=== PATIENT | female | born 1975 | race Caucasian/White ===

== ENCOUNTER → 2018-07-09 | Outpatient (CLI) | payer OTHER ==
--- NOTE | 2018-07-09 13:10 | Diagnostic Imaging Report ---
Exam: right knee 2 views History: pain Comparison: None. Findings: No fracture or malalignment. Joint spaces preserved. Small joint effusion. Impression: No acute osseous abnormality Signed by: Dr. Allen Bloom M.D. on 07/09/2018 1:07 PM
== END ==
LOC: RAD 12:01
PROVIDERS: ATTEND Internal Medicine
DX: M17.11 Unilateral primary osteoarthritis, right knee (principal); M25.561 Pain in right knee